=== PATIENT | male | born 1930 | race Caucasian/White ===

== ENCOUNTER → 2016-09-18 | Outpatient (CLI) | payer MEDICARE, OTHER ==
--- NOTE | 2016-09-18 16:48 | RADIOLOGY REPORT (SQ) ---
EXAM DESCRIPTION: CAROTID DOPPLER COMPLETED DATE/TIME: 09/18/2016 1:35 pm REASON FOR STUDY: BRUIT R09.89 OTH SYMPTOMS AND SIGNS INVOLVING THE CIRC AND RESP SY COMPARISON: None. TECHNIQUE: Grayscale ultrasound, Doppler velocity and spectra, and color Doppler images acquired of the extra-cranial carotid and vertebral arteries. Images stored on PACS. LIMITATIONS: None. FINDINGS: RIGHT CAROTID CCA Velocities: 118 cm/s ICA Velocities Peak systolic 91 cm/s. End diastolic 21cm/s. Proximal ICA/CCA peak systolic ratio 1.04. A small amount of calcific plaque is present in the carotid bulb. LEFT CAROTID CCA Velocities: 95 cm/s ICA Velocities Peak systolic 117cm/s. End diastolic 19cm/s. Proximal ICA/CCA peak systolic ratio 1.3. There is a small amount of calcified plaque in the carotid bulb. VERTEBRAL ARTERIES: Antegrade flow. Normal waveforms. SUBCLAVIAN ARTERIES: No finding. OTHER: No other significant finding. IMPRESSION: There are mild atherosclerotic changes with no hemodynamically significant lesion. COMMENT: Quality ID #[id number]: Velocity criteria are extrapolated from the diameter data as defined by t he Society of Radiologists in Ultrasound Consensus Conference. Radiology 2003: 229; 340-346. TECHNICAL DOCUMENTATION: JOB ID: [id number] [employer]- All Rights Reserved
== END ==
LOC: SP 12:55
PROVIDERS: ATTEND Surgery
DX: R09.89 Other specified symptoms and signs involving the circulatory and respiratory systems (principal)
CPT/HCPCS: 93880

== ENCOUNTER 2017-05-16 08:23 | Day surgery (SDC) | payer MEDICARE, OTHER ==
[~2017-05-16 08:23] MED LIST: BUPIVACAINE HCL 0.75% INJ/PF (7.5 MG/1 ML) 10 ML SDV OD PRN; CHONDR SU A NA/HYALUR INTRAOC KIT (SURGICARE) ONE; EPINEPHRINE INJ/PF 1 MG/1 ML AMPULE ONE; KETOROLAC TROMETHAMINE 0.45% 4 DROP/0.4 ML DROPERETTE OD PRN; LIDOCAINE 1% INJ-PF (10 MG/ML) 30 ML SDV ONE; LIDOCAINE 4% INJ/PF (40 MG/ML) 5 ML AMPUL OD PRN
[2017-05-16] MEDS: CYCLOPENTOLATE 0.2%/PHENYLEPHRINE 1% OPH SOLN 2 ML OD PRN ×3 (08:59→09:39)
[2017-05-16] MEDS: TROPICAMIDE 1% OPH SOLN 3 ML OD PRN ×3 (08:59→09:39)
[2017-05-16] MEDS: BESIFLOXACIN HCL 0.6% OPH SUSP 5 ML BOTTLE OD PRN ×3 (09:00→10:10)
[2017-05-16] MEDS: TETRACAINE HCL 0.5% OPH SOLN 0.6 ML DROPERETTE OD PRN ×2 (09:01→09:43)
[2017-05-16] MEDS ORDERED: ALBUTEROL SULFATE 0.083% NEB 2.5 MG/3 ML AMPUL NEB ONE (09:25)
[2017-05-16] MEDS ORDERED: MIDAZOLAM 2 MG/2 ML INJ ONE (09:34)
[2017-05-16] MEDS ORDERED: FENTANYL CITRATE INJ/PF 100 MCG/2 ML AMPUL ONE (09:35)
--- NOTE | 2017-05-16 10:24 | [facility] OPERATIVE REPORT E ---
[facility] Operative Report NAME: KARLA CAMARILLO AGE: 87Y DATE OF SURGERY: 05/16/2017 ROOM: PREOPERATIVE DIAGNOSIS: Cataract, right eye. POSTOPERATIVE DIAGNOSIS: Cataract, right eye. PROCEDURE PERFORMED: Phacoemulsification with posterior chamber intraocular lens, right eye. SURGEON: TRELL VANEGAS M.D. ANESTHESIA: Topical with MAC. INDICATIONS FOR SURGERY: Difficulty reading small print. Best corrected visual acuity 20/30, with glare 20/70. PROCEDURE: The patient was brought to the operating room and placed on the operative table. Following tetracaine drops, topical anesthesia was administered. This consisted of instrument wipe pledgets soaked in a solution of 4% Xylocaine mixed with 0.75% Marcaine in a 1:2 ratio. A 2 x 1 cm pledget was placed in the superior fornix. A 1 x 1 cm pledget was placed in the inferior fornix. The eye was patched shut for 5 minutes. The patch was removed. The eye was sterilely prepped and draped in the usual manner. Lid speculum was placed in the eye. The pledgets were removed and 4-0 black silk sutures were placed around the superior and the inferior rectus muscles to be used as traction. A conjunctival peritomy was made at the 10 o'clock position. Hemostasis was obtained with bipolar cautery. A posterior limbal groove was created using a crescent knife and dissected anteriorly towards the cornea. A sharp point blade was used to create a paracentesis site at the 2 o'clock position. A 2.4 mm keratome was used to enter the anterior chamber through the groove. Viscoelastic was injected into the anterior chamber. An anterior capsulotomy was performed using Utrata forceps in a capsulorrhexis fashion. Hydrodissection and hydrodelineation were performed. Phacoemulsification was performed in dhjpuy-spb-zbhoaai technique. A total of 40 seconds phaco time was used. Following this, the I/A unit was used to remove residual cortex. Viscoelastic was injected into the capsular bag. Intraocular lens model [id number], 25.0 diopters, serial number [id number], was placed in the capsular bag. The I/A unit was used to remove residual viscoelastic. The wound was seen to be watertight under high and low pressure, and no sutures were placed. The intraocular lens was well centered. The pressure was adjusted in the eye to normal pressure. The 4-0 black silk sutures and lid speculum were removed. The eye was shielded after Besivance drops were placed. The patient tolerated the procedure well and was sent to the recovery room in good condition. DICTATING PHYSICIAN: TRELL VANEGAS M.D. [id number] PHY#: [id number] ID: [id number] JOB#: [id number] ACCT: [id number] cc:TRELL VANEGAS M.D. >
--- NOTE | 2017-05-16 10:25 | [facility] DISCHARGE SUMMARY E ---
[facility] Discharge Summary NAME: KARLA CAMARILLO AGE: 87Y ADMITTED: 05/16/2017 DISCHARGED: 05/16/2017 FINAL DIAGNOSIS: Cataract, right eye. HOSPITAL COURSE: The patient is an 87-year-old who underwent uneventful cataract extraction with intraocular lens implant, right eye, on 05/16/2017. He will be discharged to home. He was instructed to resume preoperative medications, to take Tylenol as needed for discomfort, to keep his eye shielded, to use Besivance, Durezol and Ilevro at 3 p.m. and 8 p.m., and to follow up in my office in 1 day. DICTATING PHYSICIAN: TRELL VANEGAS M.D. [id number] Y#: [id number] ID: [id number] JOB#: [id number] ACCT: [id number] cc:TRELL VANEGAS M.D. >
== END 2017-05-16 10:44 | disposition home or self-care (01) ==
LOC: SC 08:23
PROVIDERS: ATTEND Ophthalmology
DX: H25.813 Combined forms of age-related cataract, bilateral (principal); H40.033 Anatomical narrow angle, bilateral; H02.132 Senile ectropion of right lower eyelid; H35.3131 Nonexudative age-related macular degeneration, bilateral, early dry stage; H04.123 Dry eye syndrome of bilateral lacrimal glands; I10 Essential (primary) hypertension; E03.9 Hypothyroidism, unspecified; I25.10 Atherosclerotic heart disease of native coronary artery without angina pectoris; K21.9 Gastro-esophageal reflux disease without esophagitis; Z79.899 Other long term (current) drug therapy; Z79.82 Long term (current) use of aspirin; I51.9 Heart disease, unspecified; Z85.46 Personal history of malignant neoplasm of prostate; Z85.820 Personal history of malignant melanoma of skin
CPT/HCPCS: 66984; V2632; J2250; J3490 ×3; A9270 ×2; J0171; J3010; 142

== ENCOUNTER 2017-06-04 08:23 | Day surgery (SDC) | payer MEDICARE ==
[~2017-06-04 08:23] MED LIST changes: -BUPIVACAINE HCL 0.75% INJ/PF (7.5 MG/1 ML) 10 ML SDV OD PRN; +BUPIVACAINE HCL 0.75% INJ/PF (7.5 MG/1 ML) 10 ML SDV OS PRN; -CHONDR SU A NA/HYALUR INTRAOC KIT (SURGICARE) ONE; -EPINEPHRINE INJ/PF 1 MG/1 ML AMPULE ONE; -KETOROLAC TROMETHAMINE 0.45% 4 DROP/0.4 ML DROPERETTE OD PRN; +KETOROLAC TROMETHAMINE 0.45% 4 DROP/0.4 ML DROPERETTE OS PRN; -LIDOCAINE 1% INJ-PF (10 MG/ML) 30 ML SDV ONE; -LIDOCAINE 4% INJ/PF (40 MG/ML) 5 ML AMPUL OD PRN; +LIDOCAINE 4% INJ/PF (40 MG/ML) 5 ML AMPUL OS PRN
[2017-06-04] MEDS ORDERED: LIDOCAINE 1% INJ-PF (10 MG/ML) 30 ML SDV ONE (08:24)
[2017-06-04] MEDS ORDERED: EPINEPHRINE INJ/PF 1 MG/1 ML AMPULE ONE (08:24)
[2017-06-04] MEDS ORDERED: CHONDR SU A NA/HYALUR INTRAOC KIT (SURGICARE) ONE (08:25)
[2017-06-04] MEDS: TROPICAMIDE 1% OPH SOLN 3 ML OS PRN ×3 (09:07→09:28)
[2017-06-04] MEDS: CYCLOPENTOLATE 0.2%/PHENYLEPHRINE 1% OPH SOLN 2 ML OS PRN ×3 (09:07→09:28)
[2017-06-04] MEDS: BESIFLOXACIN HCL 0.6% OPH SUSP 5 ML BOTTLE OS PRN ×4 (09:08→10:03)
[2017-06-04] MEDS: TETRACAINE HCL 0.5% OPH SOLN 0.6 ML DROPERETTE OS PRN ×2 (09:09→09:29)
[2017-06-04] MEDS ORDERED: MIDAZOLAM 2 MG/2 ML INJ ONE (09:25)
[2017-06-04] MEDS ORDERED: FENTANYL CITRATE INJ/PF 100 MCG/2 ML AMPUL ONE (09:25)
--- NOTE | 2017-06-04 11:39 | [facility] OPERATIVE REPORT E ---
[facility] Operative Report NAME: KARLA CAMARILLO AGE: 87Y DATE OF SURGERY: 06/04/2017 ROOM: PREOPERATIVE DIAGNOSIS: CATARACT, LEFT EYE. POSTOPERATIVE DIAGNOSIS: CATARACT, LEFT EYE. PROCEDURE PERFORMED: Phacoemulsification with posterior chamber intraocular lens, left eye. SURGEON: TRELL VANEGAS M.D. ANESTHESIA: Topical with MAC. 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 PROCEDURE: The patient was brought to the Operating Room and placed on the operative table. Following tetracaine drops, topical anesthesia was administered. This consisted of instrument wipe pledgets soaked in a solution of 4% Xylocaine mixed with 0.75% Marcaine in a 1:2 ratio. A 2 x 1 cm pledget was placed in the superior fornix. A 1 x 1 cm pledget was placed in the inferior fornix. The eye was patched shut for 5 minutes. The patch was removed. The eye was sterilely prepped and draped in the usual manner. Lid speculum was placed in the eye. The pledgets were removed. 4-0 black silk sutures were placed around the superior and the inferior rectus muscles to be used as traction. A conjunctival peritomy was made at the 10 o'clock position. Hemostasis was obtained with bipolar cautery. A posterior limbal groove was created using a crescent knife and dissected anteriorly towards the cornea. A sharp point blade was used to create a paracentesis site at the 2 o'clock position. A 2.4 mm keratome was used to enter the anterior chamber through the groove. Viscoelastic was injected into the anterior chamber. An anterior capsulotomy was performed using Utrata forceps in a capsulorrhexis fashion. Hydrodissection and hydrodelineation were performed. Phacoemulsification was performed in kyqihc-hug-ijksocc technique. A total of 4.72 CDE seconds phaco time was used. Following this, the I/A unit was used to remove residual cortex. Viscoelastic was injected into the capsular bag. Intraocular lens model SN60WF, 20.6 diopters, serial number [id number] was placed in the capsular bag. The I/A unit was used to remove residual viscoelastic. The wound was seen to be watertight under high and low pressure, and no sutures were placed. The intraocular lens was well centered. The pressure was adjusted in the eye to normal pressure. The 4-0 black silk sutures and lid speculum were removed. The eye was shielded after Besivance drops were placed. The patient tolerated the procedure well and was sent to the Recovery Room in good condition. DICTATING PHYSICIAN: TRELL VANEGAS M.D. [id number] PHY#: [id number] ID: [id number] JOB#: [id number] ACCT: [id number] cc:TRELL VANEGAS M.D. > MTDD
--- NOTE | 2017-06-04 11:54 | [facility] DISCHARGE SUMMARY E ---
[facility] Discharge Summary NAME: KARLA CAMARILLO AGE: 87Y ADMITTED: 06/04/2017 DISCHARGED: 06/04/2017 HOSPITAL COURSE: The patient is an 87-year-old gentleman who underwent uneventful cataract extraction with intraocular lens implant, left eye on 06/04/2017. He will be discharged to home. He is instructed to resume preoperative medications, take Tylenol as needed for discomfort, to keep his eye shielded, to use Besivance, Durezol, and Ilevro at 3:00 p.m. and 8:00 p.m., to follow up in my office in 1 day. DICTATING PHYSICIAN: TRELL VANEGAS M.D. 1950M [id number] PHY#: [id number] ID: [id number] JOB#: [id number] ACCT: [id number] cc:TRELL VANEGAS M.D. >
== END 2017-06-04 10:48 | disposition home or self-care (01) ==
LOC: SC 08:23
PROVIDERS: ATTEND Ophthalmology
PROC: 08RJ3JZ Replacement of Right Lens with Synthetic Substitute, Percutaneous Approach (ICD-10-PCS; principal; 2017-06-04 10:00)
DX: H25.812 Combined forms of age-related cataract, left eye (principal); Z96.1 Presence of intraocular lens; I10 Essential (primary) hypertension; G47.30 Sleep apnea, unspecified; E07.9 Disorder of thyroid, unspecified; Z79.899 Other long term (current) drug therapy; Z79.82 Long term (current) use of aspirin
CPT/HCPCS: 66984; V2632; J2250; J3490 ×4; A9270; J0171; J3010; 142

== ENCOUNTER 2017-07-21 07:19 | Emergency (ER) | payer MEDICARE ==
[2017-07-21] MEDS ORDERED: IPRATROPIUM/ALBUTEROL 0.5-2.5 MG/3 ML AMPUL NEB ONE (08:39)
--- NOTE | 2017-07-21 10:05 | RADIOLOGY REPORT (SQ) ---
EXAM DESCRIPTION: CHEST 2 VIEWS COMPLETED DATE/TIME: 07/21/2017 9:52 am REASON FOR STUDY: cough COMPARISON: None. NUMBER OF VIEWS: Two view. TECHNIQUE: Frontal and lateral radiographic views of the chest acquired. LIMITATIONS: None. FINDINGS: LUNGS AND PLEURA: No opacities, masses or pneumothorax. No pleural effusion. Attenuated bl ood vessels and flattened deandre-diaphragms. MEDIASTINUM AND HILAR STRUCTURES: No masses. No contour abnormalities. HEART AND VASCULAR STRUCTURES: Heart normal in size and contour. No evidence for failure. BONES: No acute findings. HARDWARE: CABG. OTHER: No other significant finding. IMPRESSION: COPD. NO ACUTE RADIOGRAPHIC FINDING IN THE CHEST. TECHNICAL DOCUMENTATION: JOB ID: [id number] [employer]- All Rights Reserved Reading location - IP/workstation name: [email or web address]
[2017-07-21] MEDS ORDERED: ALBUTEROL SULFATE HFA (90 MCG/PUFF) 8 GM MDI (1 MDI/ER DISP) IH ONE (10:18)
[2017-07-21] MEDS ORDERED: DEXAMETHASONE 4 MG TABLET PO ONE (10:18)
[2017-07-21] MEDS ORDERED: AZITHROMYCIN 250 MG TABLET PO ONE (10:20)
--- NOTE | 2017-07-21 10:25 | ER Document Report ---
ED General - General Chief Complaint: Chest Congestion Stated Complaint: BREATHING ISSUES Time Seen by Provider: 07/21/17 08:10 TRAVEL OUTSIDE OF THE [place] IN LAST 30 DAYS: No - HPI Patient complains to provider of: Congestion cough short of breath Notes: Patient coming in for cough congestion shortness of breath ongoing for the last 4 days. Patient states she has had sinus drainage going on the back of his throat more likely causing his cough. Denies any fevers chills nausea vomiting chest pain abdominal pain. Patient was comfortable my evaluation denies any recent travel denies any antibiotics. Patient states he is coughing up yellow sputum. Patient otherwise resting comfortably upon my evaluation. 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 Denies: Hx Pacemaker Review of Systems - Review of Systems Constitutional: No symptoms reported EENT: No symptoms reported Cardiovascular: No symptoms reported Respiratory: Short of breath, Sputum - Sinus drainage, Wheezing Gastrointestinal: No symptoms reported Genitourinary: No symptoms reported Male Genitourinary: No symptoms reported Musculoskeletal: No symptoms reported Skin: No symptoms reported Hematologic/Lymphatic: No symptoms reported Neurological/Psychological: No symptoms reported Physical Exam - Vital signs Vitals: Temp Pulse Resp BP Pulse Ox 98.5 F 53 L 18 175/74 H 93 07/21/17 07:26 07/21/17 07:26 07/21/17 07:26 07/21/17 07:26 07/21/17 07:26 Interpretation: Normal - General General appearance: Appears well, Alert - HEENT Head: Normocephalic, Atraumatic Eyes: Normal Conjunctiva: Normal Cornea: Normal Extraocular movements intact: Yes Pupils: PERRL Sinus: Normal Nasal: Normal Mouth/Lips: Normal Pharynx: Post nasal drainage Neck: Normal - Respiratory Respiratory status: No respiratory distress Chest status: Nontender Breath sounds: Wheezing Chest palpation: Normal - Cardiovascular Rhythm: Regular Heart sounds: Normal auscultation Murmur: No - Abdominal Inspection: Normal Distension: No distension Bowel sounds: Normal Tenderness: Nontender Organomegaly: No organomegaly - Back Back: Normal, Nontender - Extremities General upper extremity: Normal inspection, Nontender, Normal color, Normal ROM , Normal temperature General lower extremity: Normal inspection, Nontender, Normal color, Normal ROM , Normal temperature, Normal weight bearing. No: Brandy's sign - Neurological Neuro grossly intact: Yes Cognition: Normal Orientation: AAOx4 Alea Coma Scale Eye Opening: Spontaneous Buhler Coma Scale Verbal: Oriented Buhler Coma Scale Motor: Obeys Commands Buhler Coma Scale Total: 15 Speech: Normal Motor strength normal: LUE, RUE, LLE, RLE Sensory: Normal - Psychological Associated symptoms: Normal affect, Normal mood - Skin Skin Temperature: Warm Skin Moisture: Dry Skin Color: Normal Course - Re-evaluation Re-evalutation: 07/21/17 14:54 Patient's evaluation consistent with underlying bronchitis more likely caused by his post sinus drainage. Because of the productive sputum we will start the patient on antibiotic Zithromax. Patient did have relief of symptoms with bronchodilator therapy wheezing improved. Will send the patient home with albuterol. Patient encouraged follow-up primary care physician otherwise no signs of any pathology seen on chest x-ray will discharge home - Vital Signs Vital signs: Temp Pulse Resp BP Pulse Ox 97.7 F 51 L 18 146/90 H 94 07/21/17 10:26 07/21/17 10:26 07/21/17 10:26 07/21/17 10:26 07/21/17 10:26 Discharge - Discharge Clinical Impression: Bronchitis, Post-nasal drip Condition: Good Disposition: HOME, SELF-CARE Instructions: Azithromycin ([facility]), Bronchitis With Bronchospasm (Wheezing) ([facility]) , Bronchodilators ([facility]) Additional Instructions: Your symptoms today are consistent with a bronchitis more likely induced because of your postnasal drip. We will start you on medications to open up her lungs and help out with the wheezing, albuterol. Please take 2 puffs every 4 hours for the next 7 days. Also start you on antibiotic called azithromycin. He was given a one-time dose of steroids to help out with any inflammation in your lungs here in ER. The steroid will last for a number of days. Return to ER symptoms worsen follow-up with your primary care physician. Prescriptions: Albuterol Sulfate [Proair HFA Inhalation Aerosol 8.5 gm MDI] 2 puff IH Q4H PRN # 1 mdi PRN Reason: Azithromycin [Zithromax] 250 mg PO DAILY #4 tablet Cetirizine HCl [Zyrtec] 10 mg PO DAILY #30 tablet Referrals: KENNA DONALD MD [Primary Care Provider] - Follow up as needed
[2017-07-21 10:31] VITALS: BP 146/90
== END 2017-07-21 10:31 | disposition home or self-care (01) ==
LOC: ER 07:19
DX: J40 Bronchitis, not specified as acute or chronic (principal); R09.82 Postnasal drip; R06.02 Shortness of breath; I10 Essential (primary) hypertension; I25.2 Old myocardial infarction
CPT/HCPCS: 94640; 99283; 71046; A9270 ×3; J3490; J7620

== ENCOUNTER 2018-02-23 03:55 | Emergency (ER) | payer MEDICARE ==
[2018-02-23 04:02] VITALS: BP 164/84
[2018-02-23] MEDS ORDERED: ACETAMINOPHEN 325 MG TABLET PO ONE (04:13)
--- NOTE | 2018-02-23 04:25 | ER Document Report ---
HPI - HPI Patient complains to provider of: left wrist pain Time Seen by Provider: 02/23/18 04:05 Pain Level: 2 Context: Patient is an 88-year-old male that comes to the emergency department for chief complaint of left wrist pain. Pain started during the day. He denies injury. Pain is with flexing the wrist and with closing the hand. He denies any redness, he denies fever or chills, nausea or vomiting. He denies history of gout. He denies orthopedic surgery in the same extremity. He denies blood thinner use. 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 Denies: Hx Pacemaker - Immunizations Immunizations up to date: Yes Hx Diphtheria, Pertussis, Tetanus Vaccination: Yes Vertical Provider Document - CONSTITUTIONAL General Appearance: WD/WN, No Apparent Distress - INFECTION CONTROL TRAVEL OUTSIDE OF THE [place] IN LAST 30 DAYS: No - HEENT HEENT: Atraumatic, Normocephalic - NECK Neck: Normal Inspection - RESPIRATORY Respiratory: Breath Sounds Normal, No Respiratory Distress - CARDIOVASCULAR Cardiovascular: Regular Rate, Regular Rhythm - GI/ABDOMEN Gastrointestinal: Abdomen Soft, Abdomen Non-Tender - BACK Back: Normal Inspection - MUSCULOSKELETAL/EXTREMETIES Musculoskeletal/Extremeties: Tender - There is point tenderness at the left mid wrist over the volar aspect only. There is no noted significant swelling in this area, patient still has range of motion at the wrist joint although this is painful, there is no erythema or abnormal heat. Normal radial pulse, normal hand exam otherwise, normal capillary refill and sensation. Normal upper extremity exam otherwise. Course - Re-evaluation Re-evalutation: Wrist examination does not indicate infection, no evidence of injury or blood clot, range of motion is intact. Patient is very well-appearing. There is some soft tissue swelling on the x-ray. There is point tenderness on examination at the wrist. Suspect tendinitis. Discussed results with patient, provided with cockup wrist splint, discussed expectations, follow-up, and return precautions. Patient states satisfaction and agreement. - Vital Signs Vital signs: Temp Pulse Resp BP Pulse Ox 97.9 F 67 18 164/84 H 100 02/23/18 03:59 02/23/18 03:59 02/23/18 03:59 02/23/18 03:59 02/23/18 03:59 Procedures - Immobilization Left wrist Pre-Proc Neuro Vasc Exam: Normal Immobilizer type: Cock-up Performed by: RN Post-Proc Neuro Vasc Exam: Normal Alignment checked and good: Yes Discharge - Discharge Clinical Impression: Left wrist pain Condition: Stable Disposition: HOME, SELF-CARE Additional Instructions: The x-ray shows soft tissue swelling but no fracture or concerning finding. Your examination is most consistent with tendinitis. Recommendation is to ice (3-4 times a day for 10-15 minutes), rest, wear the splint for comfort. You can take the anti-inflammatory prescribed as long as this is okay with your provider and kidney doctor, otherwise just take the Tylenol. Symptoms should resolve with time. Follow-up with primary care. Return if you worsen including swelling, redness, fever, or any other concerning or worsening symptoms. Prescriptions: Naproxen [Naprosyn 250 mg Tablet] 250 mg PO DAILY PRN #7 tablet PRN Reason: Referrals: KENNA DONALD MD [Primary Care Provider] - Follow up as needed
--- NOTE | 2018-02-23 04:45 | RADIOLOGY REPORT (SQ) ---
EXAM DESCRIPTION: XR WRIST 3 OR MORE VIEWS COMPLETED DATE/TME: 02/23/2018 04:14 CLINICAL HISTORY: 88 years, Male, pain, difficult range of motion COMPARISON: None. NUMBER OF VIEWS: 3 TECHNIQUE: 3 view left wrist LIMITATIONS: None. FINDINGS: Osteopenia. Degenerative changes of the hand and wrist with mild soft tissue swelling. Negative for acute fracture or dislocation. IMPRESSION: Osteopenia with degenerative changes. Mild soft tissue swelling. copyright 2010 [employer]- All Rights Reserved
== END 2018-02-23 05:06 | disposition home or self-care (01) ==
LOC: ER 03:55
DX: M25.532 Pain in left wrist (principal); I25.2 Old myocardial infarction; I10 Essential (primary) hypertension
CPT/HCPCS: 99283; 73110; L3908; A9270

== ENCOUNTER → 2019-01-06 | Outpatient (CLI) | payer MEDICARE ==
--- NOTE | 2019-01-07 08:46 | RADIOLOGY REPORT (SQ) ---
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 TECHNIQUE: Multiplanar imaging includes noncontrasted T1, T2, FLAIR, and Diffusion with ADC map seq uences. Contrast enhanced T1 images. Images stored on PACS. CONTRAST TYPE AND DOSE: 15 mL Dotarem. RENAL FUNCTION: Not indicated. ACR Type II contrast agent associated with few, if any, unconfounded cases of NSF LIMITATIONS: None. FINDINGS: ANATOMY: No anomalies. Normal vascular flow voids. Pituitary fossa normal. CSF SPACES: Normal size and contour. No hemorrhage. CEREBRUM: A few high-signal intensity lesions scattered throughout the white matter on FLAIR imaging with distribution suggesting chronic microvascular ischemic change. Sulci and gyri normal in size and contour. No evidence of hemorrhage, mass or extraaxial fluid collection. No enhancing lesions. POSTERIOR FOSSA: No signal alteration. No hemorrhage. No edema, masses or mass effect. Internal audit ory canals, cerebello-pontine angles, mastoids normal. DIFFUSION: Negative for acute or subacute infarction. ORBITS: No masses. Globes normal. PARANASAL SINUSES: No fluid levels. Mucosa normal. OTHER: No other significant finding. IMPRESSION: NO ENHANCING LESIONS. MINIMAL MICROVASCULAR ISCHEMIC CHANGE. OTHERWISE NORMAL STUDY. EVIDENCE OF ACUTE STROKE: NO. TECHNICAL DOCUMENTATION: JOB ID: [id number] [employer]- All Rights Reserved Reading location - IP/workstation name: [email or web address]
== END ==
LOC: RAD 18:42
PROVIDERS: ATTEND Internal Medicine Medical Oncology
DX: R41.3 Other amnesia (principal); F03.90 Unspecified dementia, unspecified severity, without behavioral disturbance, psychotic disturbance, mood disturbance, and anxiety; C83.03 Small cell B-cell lymphoma, intra-abdominal lymph nodes
CPT/HCPCS: 70553; 82565